=== PATIENT | female | born 1935 ===

== ENCOUNTER 2017-03-25 12:57 | Emergency (ER) | payer MEDICARE ==
[2017-03-25] MEDS ORDERED: Dexamethasone 4 mg/1 ml IM STA (14:41)
[2017-03-25 14:43] VITALS: RESP 18
[2017-03-25] MEDS ORDERED: Dexamethasone 4 mg/1 ml ONE (14:52)
--- NOTE | 2017-03-25 14:57 | C.PDOC ---
History Of Present Illness 81 yr old female presents to the ER with complaints of low back pain for the past 4 days. Patient describes the pain as aching but non radiating. Patient reports history of spinal stenosis and a neuro stimulator put in 10 years ago. Patient states it has been doing good up until now. Denies trauma, abdominal pain, diarrhea, dysuria, bladder or bowel incontinence. Time Seen by Provider: 03/25/17 13:48 Chief Complaint (Nursing): Back Pain History Per: Patient History/Exam Limitations: no limitations Onset/Duration Of Symptoms: Days (4) Current Symptoms Are (Timing): Still Present Associated Symptoms: denies: Incontinence, New Weakness, New Numbness Exacerbating Factor(s): Movement Past Medical History Reviewed: Historical Data, Nursing Documentation, Vital Signs Vital Signs: Last Vital Signs Temp 98.7 F 03/25/17 16:25 Pulse 65 03/25/17 16:25 Resp 18 03/25/17 16:25 BP 155/85 H 03/25/17 16:25 Pulse Ox 98 03/25/17 16:25 - Medical History PMH: Dementia, HTN Surgical History: Back Surgery Family History: States: No Known Family Hx - Social History Hx Alcohol Use: No Hx Substance Use: No - Immunization History Hx Influenza Vaccination: Yes Review Of Systems Except As Marked, All Systems Reviewed And Found Negative. Gastrointestinal: Negative for: Abdominal Pain, Diarrhea Genitourinary: Negative for: Dysuria, Incontinence Musculoskeletal: Positive for: Back Pain (Low back pain ) Physical Exam - Physical Exam Appears: Non-toxic, No Acute Distress Skin: Warm, Dry, No Rash Head: Atraumatic, Normacephalic Chest: Symmetrical, No Tenderness Cardiovascular: Rhythm Regular, No Murmur Respiratory: Normal Breath Sounds, No Rales, No Rhonchi, No Stridor, No Wheezing Gastrointestinal/Abdominal: Normal Exam, Soft, No Tenderness, No Guarding, No Rebound Back: Other ((+) Paralumbar tenderness. Area of device appears fine. ) Extremity: Normal ROM, No Swelling Neurological/Psych: Oriented x3, Normal Speech, Normal Motor ED Course And Treatment O2 Sat by Pulse Oximetry: 100 (on RA) Pulse Ox Interpretation: Normal Medical Decision Making Medical Decision Making: PLAN: * Tylenol PO * Decadron IM * Toradol IM On re-exam, the patient reports improvement of symptoms. A&O x 3, Ambulatory in the ED with steady gait. Lungs are CTA, heart is RRR, abdomen is soft, non- tender and tolerating PO well. Follow up with the medical doctor/medical clinic within 1-2 days. Return if worsened. Disposition - Disposition Referrals: Charan Jean-Baptiste MD [Non-Staff] - Disposition: HOME/ ROUTINE Disposition Time: 16:02 Condition: GOOD Additional Instructions: Follow up with the medical doctor within 1-2 days. Return if worsened. Prescriptions: Cyclobenzaprine [Flexeril] 5 mg PO TID #21 tab Ibuprofen [Motrin] 1 tab PO TID PRN #30 tab PRN Reason: Pain Instructions: Acute Low Back Pain (ED) - Clinical Impression Clinical Impression: Low back pain - PA / INTAKE MAN / Resident Statement MD/DO has reviewed & agrees with the documentation as recorded. - Scribe Statement The provider has reviewed the documentation as recorded by the Scribe Noa Salgado All medical record entries made by the Scribe were at my direction and personally dictated by me. I have reviewed the chart and agree that the record accurately reflects my personal performance of the history, physical exam, medical decision making, and the department course for this patient. I have also personally directed, reviewed, and agree with the discharge instructions and disposition.
[2017-03-25 16:26] VITALS: BP 155/85; PULSE 65; TEMP 98.7
[2017-03-26 14:44] VITALS: O2SAT 100
== END 2017-03-25 16:25 | disposition home or self-care (01) ==
LOC: C.ER 12:57
DX: M54.5 Low back pain (principal)
CPT/HCPCS: 96372; 99284; J1100; J1885

== ENCOUNTER 2018-12-26 10:28 | Observation (INO) | payer MEDICARE ==
[2018-12-26 10:35] VITALS: BMI 24.1
[2018-12-26 11:15] LABS: BASO % 0.3 % (0.0-2.0); EOS # 0.1 K/uL (0.0-0.7); EOS % 1.8 % (0.0-4.0); HEMOGLOBIN 11.7 g/dL (11.0-16.0); LYMPH # 0.5 K/uL (1.0-4.3); LYMPH % 7.1 % (20.0-40.0); MEAN CELL VOLUME 97.2 fL (81.0-99.0); MEAN CORPUSCULAR HEMOGLOBIN 32.3 pg (27.0-31.0); MEAN CORPUSCULAR HGB CONC 33.2 g/dL (33.0-37.0); MEAN PLATELET VOLUME 9.5 fL (7.2-11.7); MONO # 0.5 K/uL (0.0-0.8); MONO % 7.8 % (0.0-10.0); NEUT # 5.6 K/uL (1.8-7.0); NRBC % 0.1 % (0.0-2.0); PLATELET COUNT 160 K/uL (130-400); RBC 3.63 Mil/uL (3.80-5.20); RED CELL DISTRIBUTION WIDTH 13.7 % (11.5-14.5); WHITE BLOOD COUNT 6.8 K/uL (4.8-10.8)
[2018-12-26 11:23] LABS: INR 1.1; PROTHROMBIN TIME 12.2 SECONDS (9.7-12.2)
[2018-12-26 11:38] LABS: ALB/GLOB RATIO 1.6 (1.0-2.1); ALT/SGPT 16 U/L (9-52); AST/SGOT 34 U/L (14-36); BLOOD UREA NITROGEN 29 mg/dL (7-17); CALCIUM 8.9 mg/dl (8.6-10.4); GFR NON-AFRICAN AMERICAN 36
[2018-12-26 11:46] LABS: CK-MB 1.98 ng/mL (0.0-3.38)
--- NOTE | 2018-12-26 11:57 | C.PDOC ---
History Of Present Illness 83 year old female brought to ED by ambulance for evaluation after she had a syncopal episode at home. A family member saw her in the kitchen after she fell. Patient's family states that she lost consciousness for several minutes. No seizure activity noted. Patient complains of lower back pain, but family states that the pain is chronic since she had back surgery. Patient denies chest pain, SOB, palpitations, headache, dizziness, visual changes, facial droop, and slurred speech. Time Seen by Provider: 12/26/18 11:51 Chief Complaint (Nursing): Syncope History Per: Patient, Family History/Exam Limitations: no limitations Number Of Syncopal Episodes: 1 Seizure Or Post-ictal Symptoms: None - Symptoms Of CVA Associated Symptoms: denies: Impaired Speech, Seizure Activity, New Vision Deficit(Left), New Vision Deficit(Right) Past Medical History Reviewed: Historical Data, Nursing Documentation, Vital Signs Vital Signs: Last Vital Signs Temp 98.2 F 12/26/18 10:39 Pulse 65 12/26/18 10:39 Resp 19 12/26/18 10:39 BP 138/53 L 12/26/18 10:39 Pulse Ox 98 12/26/18 10:39 - Medical History PMH: Dementia, HTN Denies: Chronic Kidney Disease Surgical History: Back Surgery Family History: States: Unknown Family Hx - Social History Hx Alcohol Use: No Hx Substance Use: No - Immunization History Hx Influenza Vaccination: Yes Review Of Systems Eyes: Negative for: Vision Change Cardiovascular: Negative for: Chest Pain, Palpitations Respiratory: Negative for: Shortness of Breath Neurological: Negative for: Weakness, Numbness, Change in Speech, Dizziness, Other (facial droop) Physical Exam - Physical Exam Appears: Well, Non-toxic, No Acute Distress Skin: Normal Color, Warm, Dry Head: Atraumatic Eye(s): bilateral: Normal Inspection, PERRL, EOMI Neck: Normal ROM, No Midline Cervical Tenderness, No Paracervical Tenderness, Supple Chest: Symmetrical, No Deformity Cardiovascular: Rhythm Regular, No Murmur Respiratory: No Accessory Muscle Use, No Rales, No Rhonchi, No Wheezing Gastrointestinal/Abdominal: Soft, No Tenderness Back: No Vertebral Tenderness, Paraspinal Tenderness (lumbar area) Extremity: Capillary Refill (<2 seconds) Neurological/Psych: Oriented x3 ED Course And Treatment - Laboratory Results Result Diagrams: 12/26/18 11:10 12/26/18 11:10 Lab Results: PT 12.2 SECONDS (9.7-12.2) 12/26/18 11:10 INR 1.1 12/26/18 11:10 APTT 26 SECONDS (21-34) 12/26/18 11:10 Troponin I < 0.0120 ng/mL (0.00-0.120) 12/26/18 11:10 Total Bilirubin 0.6 mg/dL (0.2-1.3) 12/26/18 11:10 AST 34 U/L (14-36) 12/26/18 11:10 ALT 16 U/L (9-52) 12/26/18 11:10 Alkaline Phosphatase 62 U/L (38-126) 12/26/18 11:10 Total Protein 6.4 g/dL (6.3-8.3) 12/26/18 11:10 Albumin 4.0 g/dL (3.5-5.0) 12/26/18 11:10 Globulin 2.5 gm/dL (2.2-3.9) 12/26/18 11:10 Albumin/Globulin Ratio 1.6 (1.0-2.1) 12/26/18 11:10 O2 Sat by Pulse Oximetry: 98 (in RA) - Other Rad CXR X-Ray: Interpreted by Me, Viewed By Me Interpretation: IMPRESSION: No active pulmonary disease. - CT Scan/US Head CT Other Rad Studies (CT/US): Interpreted By Me, Read By Radiologist CT/US Interpretation: IMPRESSION: No acute intracranial abnormality. Mild chronic microangiopathic changes and mild age-related global parenchymal volume loss. Progress Note: Head CT and CXR ordered for patient. Labs ordered with CBC, troponin, and UA. Disposition - Disposition Forms: [employer] (Swedish) - Scribe Statement The provider has reviewed the documentation as recorded by the Scribe (Jenny Castro) All medical record entries made by the Scribe were at my direction and per sonally dictated by me. I have reviewed the chart and agree that the record accurately reflects my personal performance of the history, physical exam, medical decision making, and the department course for this patient. I have also personally directed, reviewed, and agree with the discharge instructions and disposition.
[2018-12-26 12:26] LABS: BASOPHIL 2 % (0-2); LYMPHOCYTE 7 % (20-40); MONOCYTE 8 % (0-10); NEUTROPHIL 83 % (50-75); PLATELET ESTIMATE NORMAL (NORMAL); TOTAL CELLS COUNTED 100
[2018-12-26 12:27] LABS: ANISOCYTOSIS SLIGHT; HYPOCHROMIC SLIGHT; POIKILOCYTOSIS SLIGHT
--- NOTE | 2018-12-26 12:43 | CT ---
Date of service: 12/26/2018 PROCEDURE: CT HEAD WITHOUT CONTRAST. HISTORY: HEAD INJURY COMPARISON: None available. TECHNIQUE: Axial computed tomography images were obtained through the head/brain without intravenous contrast. Radiation dose: Total exam DLP = 1066.5 mGy-cm. This CT exam was performed using one or more of the following dose reduction techniques: Automated exposure control, adjustment of the mA and/or kV according to patient size, and/or use of iterative reconstruction technique. FINDINGS: HEMORRHAGE: No intracranial hemorrhage. BRAIN: There are mild chronic microangiopathic changes. There is no mass, mass effect or abnormal extra-axial fluid collection. There is no territorial infarction. The midline sagittal structures are normal.There are coarse atherosclerotic calcifications in the cavernous carotid arteries. VENTRICLES: There is mild age-related global parenchymal volume loss and proportionate enlargement of the ventricles and cortical sulci. CALVARIUM: There is no calvarial fracture or extracranial soft tissue swelling. PARANASAL SINUSES: Predominantly clear. MASTOID AIR CELLS: Predominantly clear. OTHER FINDINGS: None. IMPRESSION: No acute intracranial abnormality. Mild chronic microangiopathic changes and mild age-related global parenchymal volume loss.
--- NOTE | 2018-12-26 12:58 | RAD ---
Date of service: 12/26/2018 PROCEDURE: CHEST RADIOGRAPH, 1 VIEW HISTORY: Syncope COMPARISON: 07/16/2015. FINDINGS: LUNGS: The lungs are well inflated. There is mild pulmonary venous congestion. PLEURA: No pneumothorax or pleural effusion. CARDIOVASCULAR: The heart is normal in size. No aortic atherosclerotic calcifications present. OSSEOUS STRUCTURES: Within normal limits for the patient's age. VISUALIZED UPPER ABDOMEN: Normal. OTHER FINDINGS: None. IMPRESSION: No active pulmonary disease.
[2018-12-26] MEDS ORDERED: Sodium Chloride 0.9% 500 ML IV ONE ×2 (14:13→15:05)
[2018-12-26] MEDS ORDERED: Acetaminophen 650mg/20.3ml solution UD ONE (15:05)
--- NOTE | 2018-12-26 15:06 | RAD ---
Date of service: 12/26/2018 PROCEDURE: Radiographs of the Lumbar Spine. HISTORY: Low back pain, fall COMPARISON: No prior. TECHNIQUE: 3 views obtained. FINDINGS: BONES: There is degenerative 5 mm retrolisthesis of L2 on L3 and L3 on L4. There is exaggerated lumbar lordosis. Status post posterior spinal fusion with transpedicular screws and interconnecting avery from L4-S1. There is no evidence of screw fracture or loosening. There is diffuse bone demineralization. No acute fracture. DISC SPACES: There is advanced multilevel degenerative disc disease with anterior spurring, reduced disc heights and multilevel facet arthropathy, worse at L2-3 with vacuum disc. OTHER FINDINGS: No pathologic soft tissue calcifications. Both sacroiliac joints are normal. IMPRESSION: No acute fracture. Status post posterior spinal fixation from L4-S1, no evidence for hardware complications. Multilevel degenerative disc disease, worse at L2-3 with degenerative 5 mm retrolisthesis of L2 on L3.
[2018-12-26 20:08] LABS: SQUAMOUS EPITHIAL 1 /hpf (0-5); URINE BACTERIA RARE (<OCC); URINE BILIRUBIN NEGATIVE (NEGATIVE); URINE BLOOD 2+ (NEGATIVE); URINE CLARITY Hazy (Clear); URINE COLOR Yellow (YELLOW); URINE GLUCOSE (UA) NORMAL (Normal); URINE LEUKOCYTE ESTERASE 3+ Leu/uL (Negative); URINE PROTEIN 1+ mg/dL (NEGATIVE); URINE UROBILINOGEN NORMAL mg/dL (0.2-1.0)
--- NOTE | 2018-12-26 20:14 | CP.PCM.HP ---
History of Present Illness - History of Present Illness History of Present Illness: 83 year old female brought to ED by ambulance for evaluation after she had a syncopal episode at home. Her states that she was doing well prior, had gotten up eating breakfast, he gave her two bp meds and left the room. He states 10 minutes later he heard when she felt form chair to the ground, she was breathing the ent nery time, but had LOC. He states he called 911 and tried to wake her up by rubbing her face. He states he finally woke up when EMS gave her oxygen. He states she had bowel incontinence. Mic states that she lost consciousness for several minutes. No seizure activity noted. Patient complains of lower back pain, but family states that the pain is chronic since she had back surgery. Patient denies chest pain, SOB, palpitations, headache, dizziness, visual changes, facial droop, and slurred speech. PT has advance alzheimers PMHX htn alzheimers OA meds chlorthalidone 25 qd metoprol 50 qd namenda 10mg qd aricept 5mg qd no tob or ethoh lives home takes care of her Present on Admission - Present on Admission Any Indicators Present on Admission: No Review of Systems - Constitutional Constitutional: absent: Chills - EENT Nose/Mouth/Throat: absent: Epistaxis - Cardiovascular Cardiovascular: absent: Chest Pain, Diaphoresis - Respiratory Respiratory: absent: Cough, Dyspnea - Gastrointestinal Gastrointestinal: absent: Abdominal Pain, Diarrhea, Vomiting Past Patient History - Infectious Disease Hx of Infectious Diseases: None - Past Medical History & Family History Past Medical History?: Yes - Past Social History Smoking Status: Never Smoked - CARDIAC Hx Hypertension: Yes - PULMONARY Hx Respiratory Disorders: No - NEUROLOGICAL Hx Dementia: Yes - HEENT Hx HEENT Problems: No - RENAL Hx Chronic Kidney Disease: No - ENDOCRINE/METABOLIC Hx Endocrine Disorders: No - HEMATOLOGICAL/ONCOLOGICAL Hx Blood Disorders: No - INTEGUMENTARY Hx Dermatological Problems: No - MUSCULOSKELETAL/RHEUMATOLOGICAL Hx Musculoskeletal Disorders: No Hx Falls: No - GASTROINTESTINAL Hx Gastrointestinal Disorders: No - GENITOURINARY/GYNECOLOGICAL Hx Genitourinary Disorders: No - PSYCHIATRIC Hx Substance Use: No - SURGICAL HISTORY Hx Surgeries: Yes - ANESTHESIA Hx Anesthesia: Yes Hx Anesthesia Reactions: No Hx Malignant Hyperthermia: No Meds Allergies/Adverse Reactions: Allergies Allergy/AdvReac Type Severity Reaction Status Date / Time No Known Allergies Allergy Verified 12/26/18 10:34 Physical Exam - Constitutional Appears: No Acute Distress, Confused - Eye Exam Eye Exam: Normal appearance - ENT Exam ENT Exam: Mucous Membranes Moist - Neck Exam Neck exam: Positive for: Full Rom - Respiratory Exam Respiratory Exam: Clear to Auscultation Bilateral, NORMAL BREATHING PATTERN. absent: Rales - Cardiovascular Exam Cardiovascular Exam: REGULAR RHYTHM, RRR, +S1, +S2. absent: JVD - GI/Abdominal Exam GI & Abdominal Exam: Normal Bowel Sounds, Soft. absent: Tenderness - Extremities Exam Extremities exam: Positive for: normal inspection. Negative for: pedal edema, tenderness (neuro exam is non focal, she has severe dementia, her confusion is at base line. ) Results - Vital Signs Recent Vital Signs: Last Vital Signs Temp 97.8 F 12/26/18 19:47 Pulse 94 H 12/26/18 19:47 Resp 16 12/26/18 19:47 BP 154/55 H 12/26/18 19:47 Pulse Ox 96 12/26/18 19:47 - Labs Result Diagrams: 12/26/18 11:10 12/26/18 11:10 Labs: Laboratory Results - last 24 hr 12/26/18 12/26/18 12/26/18 10:37 11:10 11:10 WBC RBC Hgb Hct MCV MCH MCHC RDW Plt Count MPV Neut % (Auto) Lymph % (Auto) [place] % (Auto) Eos % (Auto) Baso % (Auto) Neut # (Auto) Lymph # (Auto) [place] # (Auto) Eos # (Auto) Baso # (Auto) Neutrophils % (Manual) Lymphocytes % (Manual) Monocytes % (Manual) Basophils % (Manual) Platelet Estimate Hypochromasia (manual) Poikilocytosis (manual Anisocytosis (manual) PT 12.2 INR 1.1 APTT 26 Sodium 138 Potassium 4.0 Chloride 102 Carbon Dioxide 26 Anion Gap 13 BUN 29 H Creatinine 1.4 H Est GFR ( Amer) 43 Est GFR (Non-Af Amer) 36 POC Glucose (mg/dL) 178 H Random Glucose 162 H D Calcium 8.9 Total Bilirubin 0.6 AST 34 ALT 16 Alkaline Phosphatase 62 Total Creatine Kinase 153 H CK-MB (Mass) 1.98 Troponin I < 0.0120 Total Protein 6.4 Albumin 4.0 Globulin 2.5 Albumin/Globulin Ratio 1.6 04/05/19 11:10 WBC 6.8 RBC 3.63 L Hgb 11.7 Hct 35.3 MCV 97.2 MCH 32.3 H MCHC 33.2 RDW 13.7 Plt Count 160 MPV 9.5 Neut % (Auto) 83.0 H Lymph % (Auto) 7.1 L [place] % (Auto) 7.8 Eos % (Auto) 1.8 Baso % (Auto) 0.3 Neut # (Auto) 5.6 Lymph # (Auto) 0.5 L [place] # (Auto) 0.5 Eos # (Auto) 0.1 Baso # (Auto) 0.0 Neutrophils % (Manual) 83 H Lymphocytes % (Manual) 7 L Monocytes % (Manual) 8 Basophils % (Manual) 2 Platelet Estimate Normal Hypochromasia (manual) Slight Poikilocytosis (manual Slight Anisocytosis (manual) Slight PT INR APTT Sodium Potassium Chloride Carbon Dioxide Anion Gap BUN Creatinine Est GFR ( Amer) Est GFR (Non-Af Amer) POC Glucose (mg/dL) Random Glucose Calcium Total Bilirubin AST ALT Alkaline Phosphatase Total Creatine Kinase CK-MB (Mass) Troponin I Total Protein Albumin Globulin Albumin/Globulin Ratio Assessment & Plan - Assessment and Plan (Free Text) Assessment: syncope Possible basal vagal pt took two bp meds 10 minutes earlier , could have contributed dc chlorthalidone and metoprolol change to norvasc which may be a better drug for her monitor overnight repeat labs in AM no ho seizure.
[2018-12-26 22:00] LABS: CK-MB 2.62 ng/mL (0.0-3.38)
[2018-12-27 01:24] VITALS: O2SAT 96
[2018-12-27 08:23] VITALS: BP 137/85; PULSE 84; RESP 20; TEMP 98.4
--- NOTE | 2018-12-27 08:43 | CP.PCM.DIS ---
Provider - Provider Date of Admission: 12/26/18 14:41 Attending physician: Verena Bush MD Time Spent in preparation of Discharge (in minutes): 30 Hospital Course - Lab Results Lab Results: Most Recent Lab Values WBC 6.8 K/uL (4.8-10.8) 12/26/18 11:10 RBC 3.63 Mil/uL (3.80-5.20) L 12/26/18 11:10 Hgb 11.7 g/dL (11.0-16.0) 12/26/18 11:10 Hct 35.3 % (34.0-47.0) 12/26/18 11:10 MCV 97.2 fL (81.0-99.0) 12/26/18 11:10 MCH 32.3 pg (27.0-31.0) H 12/26/18 11:10 MCHC 33.2 g/dL (33.0-37.0) 12/26/18 11:10 RDW 13.7 % (11.5-14.5) 12/26/18 11:10 Plt Count 160 K/uL (130-400) 12/26/18 11:10 MPV 9.5 fL (7.2-11.7) 12/26/18 11:10 Neut % (Auto) 83.0 % (50.0-75.0) H 12/26/18 11:10 Lymph % (Auto) 7.1 % (20.0-40.0) L 12/26/18 11:10 [place] % (Auto) 7.8 % (0.0-10.0) 12/26/18 11:10 Eos % (Auto) 1.8 % (0.0-4.0) 12/26/18 11:10 Baso % (Auto) 0.3 % (0.0-2.0) 12/26/18 11:10 Neut # (Auto) 5.6 K/uL (1.8-7.0) 12/26/18 11:10 Lymph # (Auto) 0.5 K/uL (1.0-4.3) L 12/26/18 11:10 [place] # (Auto) 0.5 K/uL (0.0-0.8) 12/26/18 11:10 Eos # (Auto) 0.1 K/uL (0.0-0.7) 12/26/18 11:10 Baso # (Auto) 0.0 K/uL (0.0-0.2) 12/26/18 11:10 Neutrophils % (Manual) 83 % (50-75) H 12/26/18 11:10 Lymphocytes % (Manual) 7 % (20-40) L 12/26/18 11:10 Monocytes % (Manual) 8 % (0-10) 12/26/18 11:10 Basophils % (Manual) 2 % (0-2) 12/26/18 11:10 Platelet Estimate Normal (NORMAL) 12/26/18 11:10 Hypochromasia (manual) Slight 12/26/18 11:10 Poikilocytosis (manual Slight 12/26/18 11:10 Anisocytosis (manual) Slight 12/26/18 11:10 PT 12.2 SECONDS (9.7-12.2) 12/26/18 11:10 INR 1.1 12/26/18 11:10 APTT 26 SECONDS (21-34) 12/26/18 11:10 Sodium 138 mmol/L (132-148) 12/26/18 11:10 Potassium 4.0 mmol/L (3.6-5.2) 12/26/18 11:10 Chloride 102 mmol/L (98-107) 12/26/18 11:10 Carbon Dioxide 26 mmol/L (22-30) 12/26/18 11:10 Anion Gap 13 (10-20) 12/26/18 11:10 BUN 29 mg/dL (7-17) H 12/26/18 11:10 Creatinine 1.4 mg/dL (0.7-1.2) H 12/26/18 11:10 Est GFR ( Amer) 43 12/26/18 11:10 Est GFR (Non-Af Amer) 36 12/26/18 11:10 POC Glucose (mg/dL) 178 mg/dL (65-110) H 12/26/18 10:37 Random Glucose 162 mg/dL (65-105) H D 12/26/18 11:10 Calcium 8.9 mg/dl (8.6-10.4) 12/26/18 11:10 Total Bilirubin 0.6 mg/dL (0.2-1.3) 12/26/18 11:10 AST 34 U/L (14-36) 12/26/18 11:10 ALT 16 U/L (9-52) 12/26/18 11:10 Alkaline Phosphatase 62 U/L (38-126) 12/26/18 11:10 Total Creatine Kinase 177 U/L (30-135) H 12/26/18 21:32 CK-MB (Mass) 2.62 ng/mL (0.0-3.38) 12/26/18 21:32 Troponin I < 0.0120 ng/mL (0.00-0.120) 12/26/18 21:32 Total Protein 6.4 g/dL (6.3-8.3) 12/26/18 11:10 Albumin 4.0 g/dL (3.5-5.0) 12/26/18 11:10 Globulin 2.5 gm/dL (2.2-3.9) 12/26/18 11:10 Albumin/Globulin Ratio 1.6 (1.0-2.1) 12/26/18 11:10 Urine Color Yellow (YELLOW) 12/26/18 19:56 Urine Clarity Hazy (Clear) 12/26/18 19:56 Urine pH 5.0 (5.0-8.0) 12/26/18 19:56 Ur Specific [place] 1.018 (1.003-1.030) 12/26/18 19:56 Urine Protein 1+ mg/dL (NEGATIVE) H 12/26/18 19:56 Urine Glucose (UA) Normal mg/dL (Normal) 12/26/18 19:56 Urine Ketones Negative mg/dL (NEGATIVE) 12/26/18 19:56 Urine Blood 2+ (NEGATIVE) H 12/26/18 19:56 Urine Nitrate Negative (NEGATIVE) 12/26/18 19:56 Urine Bilirubin Negative (NEGATIVE) 12/26/18 19:56 Urine Urobilinogen Normal mg/dL (0.2-1.0) 12/26/18 19:56 Ur Leukocyte Esterase 3+ [place]/uL (Negative) H 12/26/18 19:56 Urine WBC (Auto) 255 /hpf (0-5) H 12/26/18 19:56 Urine RBC (Auto) 28 /hpf (0-3) H 12/26/18 19:56 Ur Squamous Epith Cells 1 /hpf (0-5) 12/26/18 19:56 Urine Bacteria Rare (<OCC) 12/26/18 19:56 Hyaline Casts 6-10 /lpf (0-2) H 12/26/18 19:56 - Hospital Course Hospital Course: Pt was admitted for observation after a syncopal episode. Hospital stay unremarkable. Pt got little sleep, needed one to one as would want to wonder around unit. Pt would not keep the monitor on. However she states she feels well, no chest pain or sob. Metoprolol and Chlorthalidone were held. Discharge Exam - Eye Exam Eye Exam: Normal appearance - ENT Exam ENT Exam: Mucous Membranes Moist - Respiratory Exam Respiratory Exam: Clear to PA & Lateral, NORMAL BREATHING PATTERN. absent: Rales - Cardiovascular Exam Cardiovascular Exam: RRR, +S1, +S2. absent: JVD - GI/Abdominal Exam GI & Abdominal Exam: Normal Bowel Sounds - Extremities Exam Extremities exam: full ROM Discharge Plan - Follow Up Plan Condition: GOOD
[2018-12-27] MEDS ORDERED: cefTRIAXone IV 1 gm in Dextros 50 ML IVPB STA (08:45)
--- NOTE | 2018-12-29 15:06 | CARD ---
APPROVED REPORT Date of service: 12/26/2018 EKG Measurement Heart [id number] <Conclusion> Sinus rhythm with premature atrial complexes Voltage criteria for left ventricular hypertrophy Nonspecific ST and T wave abnormality Abnormal ECG
== END 2018-12-27 11:29 | disposition home or self-care (01) ==
LOC: C.ER 10:28 → C.9E 14:41 → C.5S 21:37
PROVIDERS: ADMIT Internal Medicine; ATTEND Internal Medicine
DX: R55 Syncope and collapse (principal); F02.80 Dementia in other diseases classified elsewhere, unspecified severity, without behavioral disturbance, psychotic disturbance, mood disturbance, and anxiety; G30.9 Alzheimer's disease, unspecified; I10 Essential (primary) hypertension; M54.5 Low back pain; W19.XXXA Unspecified fall, initial encounter; Y92.000 Kitchen of unspecified non-institutional (private) residence as the place of occurrence of the external cause
CPT/HCPCS: 70450; 71045; 72100; 80053; 81001; 82948; 84484; 85025; 85610; 85730; 93005; 99285; G0378; J0696; J7040

== ENCOUNTER 2019-01-17 09:07 | Outpatient (CLI) | payer MEDICARE | END 2019-01-17 09:08 | disposition home or self-care (01) | LOC: C.VASC 09:07 | DX: R60.0 Localized edema (principal) ==